=== PATIENT | female | born 1995 | race Two or more races ===

== ENCOUNTER 2021-11-07 17:16 | Inpatient (IN) | payer OTHER ==
[~2021-11-07] VITALS: Ht 170.2 cm; Wt 89.4 kg
[2021-11-07] MEDS ORDERED: PRENATAL CAPLE1 EAC1 PO (19:51)
[2021-11-07] MEDS ORDERED: PROGESTERONE200 MG VAG (19:51)
[2021-11-11] MEDS ORDERED: Procardia Xl 30MG TA PO (07:56)
== END 2021-11-11 11:58 | disposition home or self-care (01) | DRG 819 ==
LOC: OB/GYN 17:16 → LDR 17:16 → OB/GYN 11-09 09:14
PROVIDERS: ADMIT Obstetrics & Gynecology Maternal & Fetal Medicine; ATTEND Obstetrics & Gynecology Maternal & Fetal Medicine
PROC: 0UVC7ZZ Restriction of Cervix, Via Natural or Artificial Opening (ICD-10-PCS; principal; 2021-11-07)
PROC: 4A1HXCZ Monitoring of Products of Conception, Cardiac Rate, External Approach (ICD-10-PCS; 2021-11-07)
DX: O34.32 Maternal care for cervical incompetence, second trimester (principal); Z20.822 Contact with and (suspected) exposure to COVID-19; Z3A.26 26 weeks gestation of pregnancy

== ENCOUNTER 2021-11-25 14:27 | Outpatient (CLI) | payer OTHER ==
[~2021-11-25 14:27] MED LIST: PRENATAL CAPLE1 EAC1 PO; PROGESTERONE200 MG VAG; Procardia Xl 30MG TA PO
== END 2021-11-25 17:17 | disposition home or self-care (01) ==
LOC: NST 14:27
PROVIDERS: ATTEND Obstetrics & Gynecology Maternal & Fetal Medicine
DX: Z34.82 Encounter for supervision of other normal pregnancy, second trimester (principal)

== ENCOUNTER 2022-02-05 21:14 | Inpatient (IN) | payer OTHER ==
[~2022-02-05] VITALS: Ht 172.7 cm; Wt 94.8 kg
== END 2022-02-08 14:06 | disposition home or self-care (01) | DRG 807 ==
LOC: LDR 21:14 → OB/GYN 02-06 16:04
PROVIDERS: ADMIT Obstetrics & Gynecology; ATTEND Obstetrics & Gynecology
PROC: 4A1HXCZ Monitoring of Products of Conception, Cardiac Rate, External Approach (ICD-10-PCS; 2022-02-05)
PROC: 10E0XZZ Delivery of Products of Conception, External Approach (ICD-10-PCS; principal; 2022-02-06)
PROC: 0W8NXZZ Division of Female Perineum, External Approach (ICD-10-PCS; 2022-02-06)
DX: O80 Encounter for full-term uncomplicated delivery (principal); Z37.0 Single live birth; Z3A.39 39 weeks gestation of pregnancy; Z20.822 Contact with and (suspected) exposure to COVID-19